=== PATIENT | female | born 1965 | race Caucasian/White ===

== ENCOUNTER 2019-10-05 12:45 | Outpatient (CLI) | payer OTHER ==
[~2019-10-05] VITALS: Ht 152.4 cm; Wt 94.7 kg
--- NOTE | ~2019-10-05 | OP ---
PATIENT NAME: LOY GONZALES MEDICAL RECORD: [id number] :63 LOCATION:D.OPS ADMISSION DATE: SURGEON: BALJIT RODAS MD DATE OF OPERATION: 10/06/2019 PROCEDURES: 1. PTCA stent LAD. 2. Left heart catheterization. 3. Selective coronary angiography. 4. Left ventriculogram. INDICATION: Angina and coronary artery disease. PROCEDURE PERFORMED: After informed consent was obtained and after detailed description of risks, benefits as well as alternative therapies, the patient elected to proceed with angiogram and angioplasty. FINDINGS: Left ventriculogram was performed in standard 30-degree PARDO view, reveals good cardiac wall motion throughout all segments. Overall ejection fraction estimated at 60%. SELECTIVE CORONARY ANGIOGRAPHY: 1. Left main is with no significant angiographic disease. 2. Left anterior descending has 85+ percent stenosis in the proximal vessel. 3. Left circumflex has moderate irregularities, but no flow-limiting stenosis. 4. Right coronary has moderate irregularities, but no flow-limiting stenosis throughout. PTCA STENT OF THE LAD: The stent used was a 3.5 x 18 mm [place]. Result was 0% residual stenosis. OVERALL IMPRESSION: Successful percutaneous transluminal coronary angioplasty stent of the left anterior descending going from 85% initial stenosis to 0% residual. TRANSINT:[id number] Voice Confirmation ID: [id number] DOCUMENT ID: [id number] BALJIT RODAS MD CC: [id number] DICTATION DATE: 10/06/19 153 POWER BRAKE OPERATOR: 10/06/192031 DEP CLI 10/06/19 [place] [address] [place] [id number]
--- NOTE | ~2019-10-05 | DS ---
PATIENT:LOY GONZALES :63 MEDICAL RECORD: [id number] DISCHARGE SUMMARY ADMISSION DATE: 10/05/19 DISCHARGE DATE: 10/06/19 DISCHARGE DIAGNOSES: 1. Unstable angina. 2. Coronary artery disease. 3. CHIEF OF PRODUCTION stent left anterior descending this admission. 4. Hypertension. 5. Hyperlipidemia. HOSPITAL COURSE: Mrs. Gonzales presents with anginal symptomatology, found to have single vessel disease of the LAD, underwent successful PTCA stent of the LAD, was discharged home with addition of aspirin and Plavix to her medical regimen. Follow up with [facility] in 1 month. TRANSINT:[id number] Voice Confirmation ID: [id number] DOCUMENT ID: [id number] BALJIT RODAS MD CC: [id number] DICTATION DATE: 10/06/19 153 CREDIT ASSOCIATE: 10/07/19 0635 DEP CLI 10/06/19 [facility] [address] [place] [address]
--- NOTE | ~2019-10-05 | HEMODYNAMI ---
PATIENT:LOY GONZALES MEDICAL RECORD: [id number] : 63 [id number] ADMISSION DATE: 10/05/19 Generatedon:10/06/201913:03 Patient name: LOY GONZALES Patient #: [id number] SSN: [id number] : 1965 Date of study: 10/06/2019 Page: Of Hemodynamic Procedure Report Patient Data Patient Demographics Procedure consent was obtained First Name: LOY Gender: Female Last Name: CHRISTIAN : 1965 Patient #: [id number] Age: 54 year(s) Race: SSN: [id number] Additional ID: [id number] Contact details Address: [place] [address] State: [place] City: [place] Zip code: [address] Past Medical History Allergies Allergen Reaction Date Comments Reported Other allergy 10/06/2019 CODIENE Admission Admission Data Admission Date: 10/05/2019 Admission Time: 12:45 Arrival Date: 10/06/2019 Arrival Time: 0:00 Admit Source: Emergency Insurance Payor: Medicaid department [facility] #: [id number] Room #: [facility] Height (in.): 59.84 BSA: 1.9 (m2) Height (cm.): 152 BMI: 41.12 (kg/m2) Weight (lbs.): 209.44 Weight (kg.): 95 Lab Results Lab Result Date: 10/06/2019 Lab Result Time: 0:00 Biochemistry Name Units Result Min Max BUN mg/dl 15 --(--*-)-- 7 18 Creatinine mg/dl 0.9 --(-*--)-- 0.6 1.3 eGFR ml/min 69 *-(----)-- 90 120 NONAFRICAN CBC Name Units Result Min Max Hematocrit % 40.5 -*(----)-- 42 54 Hemoglobin g/dl 13.8 --(*---)-- 13.5 17.5 Procedure Procedure Types Cath Procedure Diagnostic Procedure [facility] w/Coronaries PCI Procedure Coronary Stent Coronary Stent Initial Hemochron ACT Test Procedure Description Procedure Date Procedure Date: 10/06/2019 Procedure Start Time: 12:46 Procedure End Time: 13:01 Procedure Staff Name Function Jean Carlos Monahan MD Performing Physician Sanjuana Hansen RT Monitor Dillan Machado RN Nurse Tawana Lutz RT Scrub Indication Unstable angina Procedure Data Cath Procedure Fluoroscopy Diagnostic fluoroscopy Total fluoroscopy Time: 0 time: 0 min min Diagnostic fluoroscopy Total fluoroscopy dose: 247 dose: 247 mGy mGy Contrast Material Contrast Material Type Amount (ml) Isovue 300 40 Entry Location Entry Primary Successful Side Size Upsize Upsize Entry Closure Serrano ccessful Closure Location (Fr) 1 (Fr) 2 (Fr) Remarks Device Remarks Radial Right 6 Fr Mechanical artery Short Compression Estimated blood loss: 10 ml Diagnostic catheters Device Type Used For End Catheter Placement DIAGNOSTIC [place] 110cm 5 Procedure Fr catheter ([id number]) Procedure Complications No complications Procedure Medications Medication Administration Route Dosage 0.9% NaCl I.V. 100 ml/hr Oxygen etCO2 Nasal cannula 2 l/min Heparin Flush Bag added to field 2 bags (1000units/500ml NS) Lidocaine 2% added to field 20 Radial Cocktail added to field 1 syringe (Verapamil 2mg/Nitro 400mcg/Heparin 1500units) Versed I.V. 2 mg Fentanyl I.V. 100 mcg Radial Cocktail I.A. 1 syringe (Verapamil 2mg/Nitro 400mcg/Heparin 1500units) Versed I.V. 1 mg Heparin Bolus I.V. 4000 units Plavix P.O. 75 mg Hemodynamics Rest BSA: 1.9 (m2) HGB: 13.8 (g/dl) O2 Consumption: Estimated: 183.93 (ml/min) O2 Con sumption indexed: Estimated:96.81 (ml/min/m) Heart Rate: 71 (bpm) Snapshots Pre Cath Intra NCS Post Cath Vital Signs Time Heart Resp SPO2 etCO2 NIBP (mmHg) Rhythm Pain Sedation Rate (ipm) (%) (mmHg) Status Level (bpm) 12:44:33 73 32 96 33.8 126/73(97) NSR 0 (11) 10(A) , No pain 12:48:49 79 20 90 36 123/70(104) NSR 0 (11) 10(A) , No pain 12:53:01 78 14 94 39 124/79(95) NSR 0 (11) 10(A) , No pain 12:57:19 79 15 96 42 120/73(100) NSR 0 (11) 10(A) , No pain 13:01:18 0 No Cuff NSR 0 (11) 10(A) , No pain Medications Time Medication Route Dose Verified Delivered Reason Not es Effectiveness by by 12:42:26 0.9% NaCl I.V. 100 Dillan Dillan Per physician ml/hr Jeannette Machado RN RN 12:42:35 Oxygen etCO2 2 l/min Dillan Dillan for low 02 sats Nasal Jeannette Machado cannula RN RN 12:42:45 Heparin Flush added 2 bags Dillan Dillan used for Bag to Jeannette Machado procedure (1000units/500ml field RN RN NS) 12:44:21 Lidocaine 2% added 20ml Dillan Dillan for local to vial Jeannette Machado anesthetic RN RN 12:44:33 Radial Cocktail added 1 Dillan Dillan used for (Verapamil to syringe Sabrinaigan Jeannette procedure 2mg/Nitro field RN RN 400mcg/Heparin 1500units) 12:46:40 Versed I.V. 2 mg Dillan Dillan for sedation Jeannette Machado RN RN 12:47:29 Fentanyl I.V. 100 mcg Dillan Dillan for sedation Jeannette Machado RN RN 12:47:54 Radial Cocktail I.A. 1 Dillan Jean Carlos for (Verapamil syringe Jeannette Monahan MD vasodilation 2mg/Nitro RN 400mcg/Heparin 1500units) 12:48:04 Versed I.V. 1 mg Dillan Dillan for sedation Jeannette Machado RN RN 12:51:15 Heparin Bolus I.V. 4000 Dillan Dillan for units Jeannette Machado anticoagulation RN RN 12:56:11 Plavix P.O. 75 mg Dillan Dillan for Jeannette Machado antiplatelet RN RN therapy Procedure Log Time Note 12:19:21 Informed consent obtained and on chart 12:20:30 Indication : Unstable angina 12:20:40 ACC Patient presents with Unstable Angina CCS Anginal Class 4--Inability to carry out any physical activity w/o angina. Angina may occur at rest. 12:20:46 Procedure Status Urgent Heart Cath (IP). 12:20:49 Dillan Machado RN sent for patient. Start room use. 12:20:53 Time tracking: Regular hours (M-F 7:00 - 5:00) 12:21:00 Plan of Care:Hemodynamics will remain stable., Cardiac rhythm will remain stable., Comfort level will be maintained., Respiratory function will remain adequate., Patient/ family verbilizes understanding of procedure., Procedure tolerated without complication., Recovers from procedure without complications.. 12:22:32 Arrival Date: 10/06/2019 12:00:00 AM 12:22:55 Insurance Payor : Medicaid 12:23:02 Admit Source: Emergency department 12:23:11 Patient Height : 59.84 inches 12:23:16 Patient Weight : 209.44 lbs 12:25:24 Lab Result : BUN 15 mg/dl 12:25:24 Lab Result : Hemoglobin 13.8 g/dl 12:25:24 Lab Result : Hematocrit 40.5 % 12:25:24 Lab Result : Creatinine 0.9 mg/dl 12:25:24 Lab Result : eGFR NONAFRICAN 69 ml/min 12:25:52 Patient allergic to Other allergyCODIENE 12:27:56 Risk of Mortality: 5.9 12:28:01 Risk of blood transfusion: 0.6 12:28:05 Risk of ROSIE: 3.5 12:29:16 Patient received from Med II to CCL 1 Alert and oriented. Tansferred to table in Supine position. 12:29:18 Warm blankets applied, and ruth hugger turned on for patient comfort. 12:29:18 Correct patient and procedure confirmed by team. 12:29:19 ECG and BP/O2 sat monitors applied to patient. 12:42:26 0.9% NaCl 100 ml/hr I.V. was administered by Dillan Machado RN; Per physician; Verbal order read back and verified. 12:42:35 Oxygen 2 l/min etCO2 Nasal cannula was administered by Dillan Machado RN; for low 02 sats; Verbal order read back and verified. 12:42:45 Heparin Flush Bag (1000units/500ml NS) 2 bags added to field was administered by Dillan Machado RN; used for procedure; Verbal order read back and verified. 12:43:28 Vital chart was started 12:43:29 Baseline sample Acquired. 12:43:33 Rhythm: sinus rhythm 12:43:37 Full Disclosure recording started 12:43:46 H&P Date Dictated: 10/06/2019 H&P Addendum completed by physician on day of procedure. (MUST COMPLETE FOR ALL OUTPATIENTS), New H&P dictated by physician.. 12:43:47 Pre-procedure instructions explained to patient. 12:43:48 Pre-op teaching completed and patient verbalized understanding. 12:43:50 Family in patients room. 12:43:54 Patient NPO since Midnight. 12:44:00 Is the patient allergic to Iodine/contrast media? No. 12:44:03 Was the patient premedicated? Yes 12:44:06 Is patient on blood thinner?Yes 12:44:12 ACC The patient was administered the following blood thiners within the last 24 hours: ACCPlavix 12:44:15 Patient diabetic? No. 12:44:17 - 12:44:18 ----Pre-sedation anethsthesia assessment.---- 12:44:21 Lidocaine 2% 20ml vial added to field was administered by Dillan Machado RN; for local anesthetic; Verbal order read back and verified. 12:44:22 Previous problem with sedation/anesthesia? No ? 12:44:24 Snore? Yes 12:44:26 Sleep apnea? No 12:44:29 Deviated septum? No 12:44:32 Opens mouth fully? Yes 12:44:33 Radial Cocktail (Verapamil 2mg/Nitro 400mcg/Heparin 1500units) 1 syring e added to field was administered by Dillan Machado RN; used for procedure; Verbal order read back and verified. 12:44:34 Sticks out tongue? Yes 12:44:38 Airway obstruction? No ? 12:44:41 Dentures? No ? 12:44:46 Pre procedure: right dorsailis pedis pulse 1+ Palpable, but thready & weak; easily obliterated 12:44:56 IV patent on arrival in left hand with 0.9% NaCl at KVO. 12:45:04 Lab results completed and on chart. 12:45:10 Right Radial & Right Groin area was prepped with chlora-prep and draped in sterile fashion 12:45:13 Alarms reviewed by R. N. 12:45:13 Sharps counted by scrub and verified by R.N. 12:45:15 Physician arrived 12:45:15 Physician arrived 12:45:17 --------ALL STOP TIME OUT------ 12:45:18 Final Timeout: patient, procedure, and site verified with staff and physician. All members of the team are in agreement. 12:45:20 Right Radial & Right Groin site verified by team. 12:45:27 Fire Safety Assessment: A--An alcohol-based skin anteseptic being used preoperatively., C--Open oxygen or nitrous oxide is being used., D--An ESU, laser, or fiber-optic light is being used. 12:45:39 Physical assessment completed. ASA score P 2 - A patient with mild systemic disease as per Jean Carlos Monahan MD. 12:45:46 3a) 45-59 Moderately reduced kidney function. 12:45:52 Maximum allowable contrast dose (3.7 X eGFR X 0.75)191 ml. 12:46:00 Sedation plan: IV Moderate Sedation Medication:Versed, Fentanyl 12:46:05 Use device set Radial Dx or PCI 12:46:07 ACIST Syringe (16028) opened to sterile field. 12:46:08 Medline Cath Pack ([id number]) opened to sterile field. 12:46:08 Bag Decanter () opened to sterile field. 12:46:09 ACIST Hand Control (16505) opened to sterile field. 12:46:10 ACIST Manifold (05026) opened to sterile field. 12:46:10 Tegaderm 4 x 4 (1626W) opened to sterile field. 12:46:11 MBrace Wrist Support ([id number]) opened to sterile field. 12:46:13 EMERALD Guide Wire (751-405) opened to sterile field. 12:46:14 SHEATH 6FR RAIN (2080639) opened to sterile field. 12:46:20 Procedure started. 12:46:27 Local anesthetic to right radial artery with Lidocaine 2% by Jean Carlos Monahan MD.INITIAL ACCESS ONLY 12:46:40 Versed 2 mg I.V. was administered by Dillan Machado RN; for sedation; Verbal order read back and verified. 12:46:42 A 6 Fr Short sheath was inserted into the Right Radial artery 12:47:29 Fentanyl 100 mcg I.V. was administered by Dillan Machado RN; for sedation; Verbal order read back and verified. 12:47:45 Zero performed for pressure channel P1 12:47:53 Zero performed for pressure channel P1 12:47:54 Radial Cocktail (Verapamil 2mg/Nitro 400mcg/Heparin 1500units) 1 syring e I.A. was administered by Jean Carlos Monahan MD; for vasodilation; Verbal order read back and verified. 12:48:01 A DIAGNOSTIC [place] 110cm 5 Fr catheter (250437) was advanced over the wire and used for Procedure. 12:48:04 Versed 1 mg I.V. was administered by Dillan Machado RN; for sedation; Verbal order read back and verified. 12:48:34 LV gram done using PARDO 12:48:43 EF : 60 % 12:48:48 Injector settings: Ml/sec: 5, Volume: 15, 12:48:55 RCA angiography performed. 12:48:59 Injector settings: Ml/sec: 3, Volume: 6, 12:49:50 LCA angiography performed. 12:49:56 Injector settings: Ml/sec: 3, Volume: 5, 12:50:22 INFLATOR Merit BasixCompak (YD6565) opened to sterile field. 12:50:39 CHOICE PT Extra Support 182cm wire ([id number]) opened to sterile field. 12:50:51 GUIDE 6FR XBLAD 3.5 catheter (26067140) opened to sterile field. 12:51:00 Catheter removed. 12:51:01 Proceeding to intervention. 12:51:15 Heparin Bolus 4000 units I.V. was administered by Dillan Machado RN; for anticoagulation; Verbal order read back and verified. 12:51:25 6 Fr XBLAD3.5 guide catheter was inserted over the wire 12:52:09 Pre PCI Site: [place] pLAD has 85% stenosis. 12:52:22 CHOICE PT 182 wire advanced. 12:52:25 Wire advanced across lesion. 12:52:31 ACC Pre-intervention LOUIE Flow is 3. 12:53:14 Place stent Inflation Number: 1 A LIZETH RX 3.5 x 18 stent ([id number]) was prepped and advanced across the Prox LAD . The stent was deployed at 15 GUY for 0:00 (min:sec) . 12:54:12 Stent catheter was removed intact over wire. 12:54:14 Wire removed. 12:54:15 Guide catheter removed. 12:54:26 Post PCI Site: [place] pLAD has 0% stenosis. 12:54:34 ACC Post-intervention LOUIE Flow is 3. 12:54:43 ZEPHYR REGULAR TR BAND (677754) opened to sterile field. 12:54:50 Sheath removed intact; hemostasis achieved with Mechanical Compression to the Right Radial artery. 12:54:54 Procedure ended.(Physican Out) 12:55:09 Contrast amount:Isovue 300 40ml. 12:55:17 Fluoroscopy time 00.00 minutes. 12:55:23 Flurop Dose total: 247 12:55:23 Fluoroscopy dose: 247 mGy 12:55:32 Dose Area Product 08535 mGy/cm. 12:55:36 Maximum allowable dose exceeded? No. 12:55:37 Sharps counted by scrub and verified by R.N. 12:55:39 Insertion/operative site no bleeding no hematoma. 12:55:49 [place] band inflated with 10cc of air. 12:55:56 Post right radial artery:stable 12:56:11 Plavix 75 mg P.O. was administered by Dillan Machado RN; for antiplatelet therapy; Verbal order read back and verified. 12:57:31 Post Procedure Pulses reassessed and unchanged 12:57:35 Post-procedure physical assessment completed. ASA score P 2 - A patient with mild systemic disease as per Jean Carlos Monahan MD. 12:57:40 Post procedure rhythm: unchanged. 12:57:48 Estimated blood loss: 10 ml 12:57:49 Post procedure instruction explained to patient.Patient verbalizes understanding. 12:57:51 Patient needs reinforcement of post procedure teaching. 12:57:58 ACT drawn and resulted at 237 seconds. (normal therapeutic range 180-24 0 seconds). 12:59:04 Procedure type changed to Cath procedure, Diagnostic procedure, LHC, C w/Coronaries, PCI procedure, Coronary Stent, Coronary Stent Initial, Hemochron ACT Test 13:00:07 Procedure and supply charges have been captured, reviewed, submitted an d are correct. 13:01:05 Procedure Complication : No complications 13:01:09 Vital chart was stopped 13:01:14 [facility] Findings: MVD- PCI performed (see procedure note) 13:01:20 Operative report dictated upon procedure completion. 13:01:22 See physician's report for complete and final results. 13:01:24 Report given to Pre/Post Procedure Room. 13:01:28 Patient transfered to Pre/Post Procedure Room with Stretcher. 13:01:31 Procedure ended. 13:01:31 Full Disclosure recording stopped 13:01:41 ACC-PCI Only Patient was given prescriptions, or instructed by Jean Carlos Monahan MD to start/continue the following medications upon discharge: Plavix 13:01:43 End room use (Document Last) 13:02:09 End room use (Document Last) Intervention Summary Intervention Notes Time ActionType Lesion and Equipment Used Action# Pressure Duration Attributes 12:53:[address] stent Prox LAD LIZETH RX 3.5 x 1 15 00:00 18 stent ([id number]) Device Usage Item Name Manufacture Quantity Catalog Number Hospital Part Current M inimal Lot# / Charge Number Stock Stock Serial# Code ACIST Syringe Acist 1 35764 192475 065691 554119 2 0 (31728) Medical Systems Inc Medline Cath Medline 1 [id number] 302696 39334 077195 5 Pack ([id number]) Bag Decanter Microtek 1 327903 01813 451782 5 () Medical Inc. ACIST Hand Acist 1 87641 363678 850769 526041 5 Control Medical (25886) Systems Inc ACIST Manifold Acist 1 30228 249972 035251 502255 5 (23737) Medical Systems Inc Tegaderm 4 x 4 3M 1 1626W 111523 687457 022009 5 (1626W) MBrace Wrist Advanced 1 140-0250-00 312355 13073 092137 5 Support Vascular (825083478) Dynamics EMERALD Guide Cardinal 1 097-196 412471 814003 801311 5 Wire (220-753) Health SHEATH 6FR Cardinal 1 2402045 800139 9776052 194461 5 RAIN (9879369) Health DIAGNOSTIC Terumo 1 40-9743 097928 378262 996079 5 [place] 110cm 5 Fr catheter (081397) INFLATOR Merit Merit 1 UD6911 505045 309165 048140 1 5 [facility] Medical (QP4313) CHOICE PT Berry 1 [id number] 871499 210047 499758 5 Extra Support Scientific 182cm wire (2604493E6) GUIDE 6FR Cardinal 1 [id number] 429023 858328 614493 1 0 XBLAD 3.5 Health catheter (57639028) LIZETH RX 3.5 x Medtronic 1 [id number] 827880 5450992 231157 5 [id number] 18 stent ([id number]) ZEPHYR REGULAR Cardinal 1 607325 694933 8136646 532930 5 TR BAND [employer]OWER [employer] (306118) Signature Audit [place] Stage Time Signature Unsigned Intra-Procedure 10/06/2019 Sanjuana 1:02:09 PM Tyrone RT(R) (CV) Intra-Procedure 10/06/2019 Dillan 1:02:42 PM Jeannette SHEEHAN Intra-Procedure 10/06/2019 Jean Carlos Monahan 1:03:06 PM [facility] [address] [place] [address]
--- NOTE | ~2019-10-05 | EC ---
PATIENT:LOY GONZALES DATE OF SERVICE: 10/05/19 SEX: F MEDICAL RECORD: [id number] DATE OF : 63 LOCATION:D.OPS AGE OF PATIENT: 54 ADMISSION DATE: 10/05/19 REFERRING PHYSICIAN: INTERPRETING PHYSICIAN: BALJIT MONAHAN MD ECHOCARDIOGRAM REPORT ECHO CHARGES 4 ECHO COMPLETE Date: 10/06/19 CLINICAL DIAGNOSIS: UNSTABLE ANGINA ECHOCARDIOGRAPHIC MEASUREMENTS (adult normal given) AC root (d.<3.7cm) 2.9 cm LV Septum d (<1.2 cm> 1.1 cm Valve Excursion 1.5 cm LV Septum (systole) 1.5 cm Left Atria (s.<4.0cm> 3.9 cm LVPW d(<1.2cm) 1.4 cm RV (d.<2.3cm) 3.5 cm LVPW (sytole) 1.8 cm LV diastole(<5.6CM) 5.0 cm MV E-F(>70mm/sec) cm LV systole 3.6 cm LVOT Diameter 1.4 cm MV exc.(>10mm) 1.5 cm Est.ejection fraction (50-75%) % DOPPLER: LVIT cm/sec A 86.0 cm/sec E 68.0 cm/sec LA cm/sec RVSP 16 mmHg LVOT 99 cm/sec AOP1/2T m/s Asc. Ao 147 cm/sec RVOT 84 cm/sec RA cm/sec PA 121 cm/sec AV Gradient Peak 8.59 mmHg AV Mean 3.85 mmHg AV Area 1.5 cm MV Gradient Peak 4.89 mmHg MV Mean 1.77 mmHg MV Area cm COMMENTS: Trapeze Artist: Yen KATZ Corporate Strategy Analyst: 1 Dr. Monahan TAPE# PACS Pericardial Effusion N DATE OF SERVICE: FINDINGS: 1. Left ventricular chamber size is within normal limits. Left ventricular systolic function is normal at 60% to 65%. 2. Left atrium is within normal limits. Right atrium and right ventricular chamber sizes are mildly dilated. 3. Valvular structures have normal structure and motion. 4. Doppler interrogation reveals no significant valvular insufficiency or stenosis and pulmonary systolic pressure is estimated at 16 mmHg. ECHOCARDIOGRAM REPORT [id number] LOY GONZALES 5. No evidence of pericardial effusion or left ventricular thrombus. TRANSINT:[id number] Voice Confirmation ID: [id number] DOCUMENT ID: [id number] BALJIT MONAHAN MD CC: [id number] DICTATION DATE: 10/07/19928 ROLL OFF DRIVER: 10/07/19939 DEP CLI 10/06/19 [place] [id number]
[2019-10-05 13:23] LABS: BASOPHILS 0.4 % (0-2); EOSINOPHILS 2.3 % (0-7); HEMATOCRIT 40.5 % (36.0-48.0); HEMOGLOBIN 13.8 g/dL (12-16); IMMATURE GRANULOCYTES 0.9 % (0-5); LYMPHOCYTES 38.5 % (15-50); MCH 31.5 pg (26.0-34.0); MCHC 34.1 g/dL (31.0-37.0); MCV 92.5 fL (80.0-100.0); MEAN PLATELET VOLUME 9.2 fL (7.4-10.4); MONOCYTES 9.8 % (2-11); NEUTROPHILS 48.1 % (40-80); PLATELET COUNT 333 10x3/uL (130-400); RBC 4.38 10x6/uL (4.00-5.40); RDW 11.8 % (11.5-14.5)
[2019-10-05 13:34] LABS: CALC OSMOLALITY 272 mosm/kg (275-300); CALCIUM 9.9 mg/dL (8.5-10.1); CHLORIDE - SERUM 99 mmol/L (98-107); CREATININE - SERUM 0.9 mg/dL (0.6-1.3); GLUCOSE 104 mg/dL (74-106); SODIUM 136 mmol/L (136-145); UREA NITROGEN 15 mg/dL (7-18); eGFR NON AFRICAN AMERICAN 69 mL/min (90-120)
[2019-10-05 13:49] LABS: ALBUMIN 4.4 g/dL (3.4-5.0); ALKALINE PHOSPHATASE 62 U/L (30-120); ALT (SGPT) 93 U/L (10-68); CKMB 0.7 U/L (0.0-3.6); CREATINE KINASE 92 UL (21-215); MAGNESIUM - SERUM 1.8 mg/dL (1.8-2.4); PROTEIN - SERUM 7.9 g/dL (6.4-8.2); TROPONIN-I < 0.017 ng/mL (0.000-0.060)
[2019-10-05 13:50] LABS: APTT 24.3 SECONDS (22.8-39.4); INR 0.98 (0.85-1.17)
[2019-10-05 14:57] LABS: AMYLASE - SERUM 37 U/L (25-115); LIPASE 177 U/L (73-393)
[2019-10-05 19:26] LABS: CREATINE KINASE 52 UL (21-215); TROPONIN-I < 0.017 ng/mL (0.000-0.060)
[2019-10-05] MEDS ORDERED: LISINOPRIL20 MG PO (21:34)
[2019-10-05] MEDS ORDERED: HYDROCHLOROTHIA25 MG PO (21:35)
[2019-10-05] MEDS ORDERED: TOPROL XL50 MG PO (21:36)
[2019-10-05] MEDS ORDERED: CRESTOR10 MG PO (21:36)
[2019-10-05] MEDS ORDERED: PROZAC20 MG PO (21:37)
[2019-10-05] MEDS ORDERED: OMEPRAZOLE20 M1 PO (21:37)
[2019-10-05 23:59] VITALS: Ht 152.4 cm; Wt 94.7 kg
[2019-10-06 00:26] VITALS: BP 107/62
[2019-10-06 01:22] LABS: CKMB 0.7 U/L (0.0-3.6); CREATINE KINASE 69 UL (21-215); TROPONIN-I < 0.017 ng/mL (0.000-0.060)
[2019-10-06 06:00] VITALS: BP 108/61
[2019-10-06 07:51] LABS: CKMB 0.6 U/L (0.0-3.6); CREATINE KINASE 65 UL (21-215); TROPONIN-I < 0.017 ng/mL (0.000-0.060)
[2019-10-06 11:29] VITALS: BP 106/61
--- NOTE | 2019-10-06 12:56 | HP ---
PATIENT: LOY GONZALES MEDICAL RECORD: [id number] ACCOUNT: [id number] LOCATION:[address] : 63 ADMISSION DATE: 10/05/19 PCP: MIKO WARNER MD HISTORY AND PHYSICAL EXAMINATION DIAGNOSES: 1. Unstable angina class IV. 2. Shortness of breath, dyspnea on exertion. 3. Abnormal stress test -- [place]. 4. Hypertension. 5. Hyperlipidemia. 6. Family history of coronary artery disease. 7. Smoking history. HISTORY OF PRESENT ILLNESS: Mrs. Gonzales has had 2 months of chest discomfort compatible with angina; however, in the past 2 weeks, it is worsened dramatically. She is having episodes at rest, it is a classic angina with a heaviness or a weight sensation on her chest with radiation to her jaw. She underwent stress testing at [place], was told that this was positive and she was needing to see a diagnostics sales developer. This had not been set up yet. Her chest pain worsened. She presented to our Emergency Room. PHYSICAL EXAMINATION: CONSTITUTIONAL/GENERAL APPEARANCE: Well nourished, well developed, appears stated age. EYES: Lids and conjunctivae noninjected. No discharge. No pallor. ENT: Lips within normal limit. No cyanosis. No pallor. NECK: Carotid arteries, bilateral normal upstroke. No bruits. No thrills. No jugular venous pressure or distention. CERVICAL LYMPH NODES: Nontender. Nonenlarged. THYROID: Not enlarged. No nodules. CARDIOVASCULAR: Precordial exam, nondisplaced. No heaves or pericardial thrills. Rate and rhythm, regular. Heart sounds, normal S1, normal S2. No S3, no gallop, no rub. Systolic murmur, not heard. Diastolic murmur, not heard. RESPIRATORY: Respiratory effort, unlabored. Normal curvature. No thoracic deformity. No chest wall tenderness. Percussion, resonant. Auscultation, clear. No wheezes, no rales, no rhonchi. ABDOMEN: Soft, nondistended, nontender. No abdominal pain, no vomiting and normal appetite. MUSCULOSKELETAL: No joint tenderness, normal gait, normal tone. SKIN: Warm and dry. OVERALL IMPRESSION: Class IV angina with an abnormal stress test. We will proceed with coronary angiography. Further care depends upon findings of angiography. TRANSINT:[id number] Voice Confirmation ID: [id number] DOCUMENT ID: [id number] HISTORY AND PHYSICAL [id number] LOY GONZALES JEFFREY MD at 1256 CC: [id number] DICTATION DATE: 10/06/19819 FAMILY INTERVENTION SPECIALIST: 10/06/19 1048 REG [facility] [address] [place] [id number]
[2019-10-06 15:19] VITALS: BP 110/66
[2019-10-06] MEDS ORDERED: BAYER CHEWABLE81 MG PO (15:39)
[2019-10-06] MEDS ORDERED: PLAVIX75 MG PO (15:40)
== END 2019-10-06 18:58 | disposition home or self-care (01) ==
LOC: D.OPS 12:45 → D.ER 12:45 → D.M2 12:45 → EDSTATUS 20:13 → D.OPS 10-06 18:58
PROVIDERS: Family Medicine; ATTEND Internal Medicine Interventional Cardiology
DX: I25.110 Atherosclerotic heart disease of native coronary artery with unstable angina pectoris (principal); R94.39 Abnormal result of other cardiovascular function study; I10 Essential (primary) hypertension; E78.5 Hyperlipidemia, unspecified; Z82.49 Family history of ischemic heart disease and other diseases of the circulatory system; Z72.0 Tobacco use